=== PATIENT | male | born 1965 | race Caucasian/White ===

== ENCOUNTER 2017-02-01 22:11 | Emergency (ER) | payer MEDICAID ==
[~2017-02-01] VITALS: Ht 167.6 cm; Wt 81.0 kg
[2017-02-01] MEDS ORDERED: FAMOTIDINE 20MG/2ML VIAL IV STA (23:56)
[2017-02-01] MEDS ORDERED: ONDANSETRON HCL 4MG/2ML VIAL IV STA (23:56)
[2017-02-01] MEDS ORDERED: MAGNESIUM/ALUMINUM HYDROXIDE/SIMETHICONE 30ML UDC PO STA (23:56)
[2017-02-01] MEDS ORDERED: MORPHINE SULFATE 4 MG/ML CPJ (NOT FOR IM USE) IV STA (23:56)
[2017-02-01] MEDS ORDERED: SODIUM CHLORIDE 0.9% 1,000 ML IV ONE (23:56)
[2017-02-02 00:11] LABS: HEMATOCRIT. 51.4 % (42.0-52.0); HEMOGLOBIN. 17.6 g/dL (14.0-18.0); MEAN CORPUSCULAR HEMOGLOBIN 33.6 pg (28.0-32.0); MEAN CORPUSCULAR VOLUME 98.2 fL (80.0-94.0); MEAN PLATELET VOLUME 10.1 fl (7.4-10.4); PLATELET 246 x1000/uL (130-400); RED BLOOD CELL COUNT 5.23 mill/uL (4.7-6.1); RED CELL DISTRIBUTION WIDTH 12.7 % (11.6-14.6)
[2017-02-02 00:17] LABS: CHLORIDE 105 mEq/L (98-107)
[2017-02-02 00:25] LABS: CARBON DIOXIDE 26 mEq/L (21-32)
[2017-02-02 00:58] LABS: PLATELET ESTIMATE NORMAL
[2017-02-02] MEDS ORDERED: IOHEXOL-300 100 ML BOTTLE ONE (02:03)
[2017-02-02 04:04] VITALS: BP 110/70
== END 2017-02-02 04:10 | disposition home or self-care (01) ==
LOC: ER 22:11
DX: T62.8X1A Toxic effect of other specified noxious substances eaten as food, accidental (unintentional), initial encounter (principal); Y92.89 Other specified places as the place of occurrence of the external cause; Z88.0 Allergy status to penicillin; Z90.49 Acquired absence of other specified parts of digestive tract
CPT/HCPCS: 36415; 74177; 80053; 83605; 83690; 85025; 96361; 96374; 96375; 99285; J2270; J2405; J3490; J7030; Q9967; Z7610

== ENCOUNTER 2017-12-04 18:27 | Emergency (ER) | payer MEDICAID ==
[~2017-12-04] VITALS: Ht 172.7 cm; Wt 82.0 kg
[2017-12-04 18:40] VITALS: BP 145/80
== END 2017-12-05 06:03 | disposition left against medical advice (07) ==
LOC: ER 18:27
DX: M54.5 Low back pain (principal); Z53.21 Procedure and treatment not carried out due to patient leaving prior to being seen by health care provider